=== PATIENT | male | born 1985 | race Caucasian/White ===

== ENCOUNTER → 2019-07-10 08:35 | Outpatient (BNVA) | payer OTHER, SELFPAY | PROVIDERS: PCP Orthopaedic Surgery; Visit Provider Orthopaedic Surgery | DX: S82.142A Displaced bicondylar fracture of left tibia, initial encounter for closed fracture (principal); X58.XXXA Exposure to other specified factors, initial encounter | CPT/HCPCS: 73560 ==

== ENCOUNTER 2024-10-16 14:05 | Emergency (ER) | payer SELFPAY ==
[2024-10-16] VITALS (13 sets, daily range): BP systolic 87–128; BP diastolic 51–87; PULSE 80–150; RESP 16–22; TEMP 36.9–39.4; O2SAT 91–96
--- NOTE | 2024-10-16 14:17 | ECG_ITS ---
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 Measurements Intervals [place] Rate: 149 P: 7 GA: 134 QRS: 124 QRSD: 99 T: 58 QT: 309 QTc: 487 Interpretive Statements SINUS TACHYCARDIA, POSSIBLE ATRIAL FLUTTER INDETERMINATE AXIS INCOMPLETE RIGHT BUNDLE BRANCH BLOCK [90+ ms QRS DURATION, TERMINAL R IN V1/V2, 40+ ms S IN I/aVL/V4/V5/V6] NONSPECIFIC ST & T-WAVE ABNORMALITY No previous ECG available for comparison Electronically Signed On 10-17-2024 21:33:08 CDT by Asa Lantigua M.D. [email or web address]
--- NOTE | 2024-10-16 14:23 | CT_ITS ---
WS: [id number] CT ABDOMEN AND PELVIS NONCONTRAST HISTORY: Abdominal pain TECHNIQUE: Imaging performed through the abdomen and pelvis. Coronal and sagittal reformats are submitted. All CT scans at [facility] use at least one of these dose optimization techniques: automated exposure control; mA and/or kV adjustment per patient size (includes targeted exams where dose is matched to clinical indication); or iterative reconstruction. DLP: 634.03 mGy.cm COMPARISON: None available. Lower thorax: Lung bases are clear. Visualized heart is normal. Small hiatal hernia. Liver: Enlarged heterogeneous liver. Cirrhotic appearance of the liver. There is intrahepatic duct dilatation. Markedly enlarged intrahepatic and common bile duct due to multiple stones along the common bile duct extending to the ampulla of Vater. Gallbladder: Abnormal gallbladder. There is gallbladder wall thickening and edema with pericholecystic fluid. Numerous stones within the gallbladder and extending throughout the common bile duct. Pancreas: Mild edema surrounding the pancreatic head. Pancreatic duct does not appear dilated. Spleen: Massive enlargement of the spleen measuring 19.3 cm in length. Numerous varicosities are noted in the LEFT abdomen at this clinic hilum and surrounding the spleen. Varicosities surround the distal esophagus. Adrenal glands: Normal RIGHT adrenal gland. LEFT adrenal gland is not well visualized due to the adjacent varicosities. Right kidney: Normal size kidney with no mass or hydronephrosis. Left kidney: Normal size kidney with no mass or hydronephrosis. Aorta: Mild atherosclerosis aorta. No aneurysm. Small central mesenteric lymph nodes are identified. Some of the nodules in the central mesentery are related to varicosities. GI tract: Stomach is normally distended. Mild inflammatory changes surrounding the loop of the duodenum. This is associated with choledocholithiasis. Mild sigmoid diverticular disease. Normal appendix. Abdominal wall: Small umbilical hernia. Recanalized umbilical vein. Pelvis: Urinary bladder is distended. No free fluid in the pelvis. Osseous structures: Multiple compression fractures in the thoracic and lumbar spine. Grade [address]/CT abdomen pelvis wo con [id number] IMPRESSION: 1. Choledocholithiasis. Numerous stones extend along the common bile duct into the ampulla of Vater. Some stones may actually be extruded into the duodenum. There is marked common bile duct and intrahepatic duct dilatation. Numerous sto juan remain within the gallbladder lumen. None of the stones appear to be professional programmer analyst al to the common bile duct. Patient is at risk for extrusion of the gallstones from the common bile duct and gallbladder. 2. Changes of acute cholecystitis. 3. Cirrhotic liver. 4. Inflammatory changes surround the pancreatic head from acute pancreatitis r elated to stone disease. 5. Massive enlargement of the spleen with splenic varicosities. Portal venous hypertension with cirrhotic liver. 6. Recanalized umbilical vein. 7. No ascites. 8. Small hernia with esophageal varices. Notified Osei Hagen DO at 10/16/2024 4:00 PM.
--- NOTE | 2024-10-16 14:25 | XRR_ITS ---
PROCEDURE INFORMATION: Exam: XR Chest Exam date and time: 10/16/2024 2:43 PM Age: 39 years old Clinical indication: Cough and dyspnea; Additional info: Dyspnea/cough TECHNIQUE: Imaging protocol: Radiologic exam of the chest. Views: 1 view. COMPARISON: No relevant prior studies available. FINDINGS: Lungs: There is no consolidation. There is minimal reticular opacity in the inferolateral portions of both lungs. Pleural spaces: There is no pleural effusion or pneumothorax. Heart/Mediastinum: Cardiomediastinal contours are unremarkable. Bones/joints: Bones are unremarkable. XR/XR chest 1V portable [id number] IMPRESSION: Minimal reticular opacity in the peripheral lower lungs bilaterally. Nonspecific. Possible mild scarring/atelectasis. Low-grade infection and interstitial lung disease can not be excluded.
[2024-10-16 14:36] LABS: Basophils % 0.3 %; Eosinophils % 0.2 %; Hematocrit 38.7 % (37-53); Lymphocytes # 0.3 10^3/uL (0.8-4.8); Lymphocytes % 2.7 %; Mean Corpuscular HGB Conc 32.8 g/dL (30-55); Mean Corpuscular Hemoglobin 30.5 pg (27-33); Mean Corpuscular Volume 92.8 fl (82-101); Mean Platelet Volume 11.7 fL (7.4-10.4); Monocytes # 0.9 10^3/uL (0.2-0.9); Monocytes % 9.1 %; Neutrophils # 8.61 10^3/uL (1.8-7.7); Neutrophils % 87.4 %; Nucleated Red Blood Cells % 0 %; Platelet Count 50 10^3/cmm (157-399); Red Blood Count 4.17 10^6/uL (3.85-5.65); Red Cell Distribution Width 17.2 % (12.1-15.1); White Blood Count 9.86 10^3/uL (3.29-11.43)
[2024-10-16 14:40] LABS: ABG PCO2 29.9 mmHg (35-45); ABG PH Result 7.49 (7.35-7.45); Arterial Blood Gas Hematocrit 40.5 % (42-52); Base Excess ABG 0.2 mmol/L (-2.0-2.0); Blood Gas Allen Test Pos; Blood Gas Sample Type Arterial; Carboxyhemoglobin 1.8 %THgb (0.4-20.1); HCO3 ABG 22.7 mmol/L (22-26); HGB O2 Sat 90.4 % (95-100); Ionized Calcium Level - ABG 1.1 mmol/L (1.1-1.4); Methemoglobin 1.2 % (0.4-1.5); Oxygen Saturation ABG 93.1; PO2 ABG 59.2 mmHg (80.0-100.0); Potassium Level - ABG 3.4 mmol/L (3.5-5.0); Total Hemoglobin 13.2 g/dL (14-18)
[2024-10-16 14:41] LABS: Blood Gas Operator Identificat MONRO; Blood Gas Sample Site Radial, right; Oxygen Device ROOM AIR; PO2 FiO2 Ratio Arterial Blood 281
[2024-10-16 14:54] LABS: Alanine Aminotransferase 74 U/L (0-41); Albumin Level 3.6 g/dL (3.5-5.2); Alkaline Phosphatase 550 U/L (40-130); Anion Gap 17.7 (5-19); Aspartate Amino Transferase 108 U/L (0-40); Blood Urea Nitrogen 12 mg/dL (6-20); Calcium 8.6 mg/dL (8.5-10.5); Carbon Dioxide 19 mmol/L (22-29); Chloride 102 mmol/L (98-107); Creatinine Clr Calc Pharmacy 287.6639; Globulin 3.2 g/dL (1.3-4.6); Glomerular Filtration Rate 238.3 mL/min (90-130); Glucose 117 mg/dL (65-115); Lactic Sepsis W/Reflex 1.4 mmol/L (0.5-2.2); Osmolality Calculated 281 mOsm/kg (285-295); Potassium 3.7 mmol/L (3.5-5.1); Sodium 135 mmol/L (136-145); Total Protein 6.8 g/dL (6.6-8.7)
[2024-10-16 14:55] LABS: Total Bilirubin 18.9 mg/dL (0.15-1.2)
[2024-10-16 14:56] LABS: Ammonia 59 umol/L (16-60)
--- NOTE | 2024-10-16 14:58 | US_ITS ---
WS: [id number] INDICATION: Abdominal distention TECHNIQUE: Four-quadrant ultrasound abdomen FINDINGS: No visualized ascites. Enlarged cirrhotic liver and spleen US/US abdomen lmt fluid [id number] IMPRESSION: No visualized ascites
[2024-10-16 15:02] LABS: Lipase 2735 U/L (13-60)
--- NOTE | 2024-10-16 15:05 | US_ITS ---
WS: [id number] RIGHT UPPER QUADRANT ULTRASOUND HISTORY: choledocholithiasis COMPARISON: CT the same day. Liver: 16.6 cm in length. Cirrhotic liver. Limited visualization of the liver. Intrahepatic ducts do not appear as significantly dilated as seen on CT. Limited evaluation of the liver. Portal Vein: Normal hepatopetal flow with monophasic waveform. Gallbladder: Gallbladder is poorly visualized. Stones within the gallbladder with diffuse gallbladder wall thickening. Patient has known pericholecystic fluid as seen on recent CT. CBD: 1.5 cm Pancreas: Not visualized. Right kidney: 12.9 cm in length. Normal size and echogenicity. No hydronephrosis or mass. Aorta and IVC: Limited. No ascites. US/US gall bladder [id number] IMPRESSION: 1. Very limited RIGHT upper quadrant ultrasound. 2. Patient has known cholelithiasis and acute cholecystitis as seen also by CT . 3. Common bile duct is dilated to 1.5 cm. Choledocholithiasis seen on CT is no t identified by ultrasound. 4. Cirrhotic liver.
--- NOTE | 2024-10-16 15:10 | ED_ITS ---
HPI - Abdominal Pain 2 General: Chief Complaint: Abdominal Pain Stated Complaint: yellow skin /SOB Time Seen by Provider: 10/16/24 14:22 History of Present Illness: 39-year-old male presents emergency room complaint of generally not feeling well last several days increased jaundice and fever patient has known cirrhosis presumably from history of alcohol use. Some mild epigastric discomfort but no sharp pain anywhere. No vomiting or diarrhea has been very nauseous on arrival here he is quite tachycardic. Denies chest pain or shortness of breath patient notices that with the generalized unwell feeling increased jaundiced he has been more nauseous but no vomiting. He is also noticed more abdominal distention. Denies any recent alcohol use. Associated Symptoms: Reports nausea; Denies chills, coffee ground emesis, dysuria, fever(s), hematochezia, hematemesis and melena Related Data Home Medications ?Medication ?Instructions ?Recorded ?Confirmed ibuprofen 200 mg capsule 200 mg PO Q6H PRN Pain 07/1010/16/24 pantoprazole 40 mg tablet,delayed 40 mg PO DAILY 10/1610/16/24 release Allergies Allergy/AdvReac Type Severity Reaction Status Date / Time No Known Allergies Allergy Verified 10/16/24 14:15 Review of Systems 2 Const: Denies: fever(s) or chills Card: Denies: chest pain Resp: Denies: dyspnea GI: Reports: nausea; Denies: abdominal pain, hematemesis, coffee ground emesis, hematochezia or melena : Denies: dysuria, urinary frequency or urinary urgency Musc: Denies: neck pain or back pain Skin/Breast: Denies: rash [facility] ED 2 PFSH: Social History Smoking and tobacco/nicotine status: current every day tobacco/nicotine user Alcohol intake: never Substance/Drug Use: never Physical Exam 2 Const: COMMON NORMALS: no acute distress GENERAL APPEARANCE: cooperative and comfortable ORIENTATION/CONSCIOUSNESS: Yes awake, Yes oriented to person, Yes oriented to place and Yes oriented to time HENMT: COMMON NORMALS: normocephalic, atraumatic and hearing grossly normal bilaterally HEAD & SCALP: normocephalic and atraumatic Resp: COMMON NORMALS: normal respiratory effort, No retractions, No use of accessory muscles and clear to auscultation bilaterally AUSCULTATION: clear to auscultation bilaterally Cardio: COMMON NORMALS: regular rhythm and No murmurs present (Cardio) R ATE: tachycardic RHYTHM: regular rhythm GI: INSPECTION: Yes abdominal distension AUSCULTATION: Yes normoactive bowel sounds PALPATION: Yes Tenderness to palpation present (GI) (Mild epigastric), No Guarding due to palpation present (GI) and Yes Hepatomegaly present Extremity: COMMON NORMALS: normal to inspection, capillary refill normal, no clubbing, cyanosis or edema, no calf tenderness and no pedal edema Neuro: SENSORIUM/ORIENTATION: Yes oriented to person, Yes oriented to place and Yes oriented to time Skin: OTHER: Significant scleral icterus and jaundice of the skin systemic Course 2 Vital Signs: Vital signs: Vital Signs Temperature 97.4 F L 10/17/24 03:55 Pulse Rate 109 H 10/17/24 14:31 Respiratory Rate 26 H 10/17/24 13:30 Blood Pressure 116/60 10/17/24 14:31 Pulse Oximetry 96 10/17/24 14:31 Oxygen Delivery Me thod Room Air 10/17/24 06:42 MDM - Abdominal Pain Medical Decision Making Patient has significant choledocholithiasis evident on the CT. Discussed with Dr. Andres she does not feel that MRCP would be necessary given obvious findings on the CT. Ultrasound there is no gas was difficult to distinguish the common bile duct. I discussed with GI at [facility] they have agreed to take the patient he has been given fluid boluses and initiated on antibiotics cultures have been done. Care signed out to Dr. Onofre at change of shift. See final notes for diagnosis and disposition. 10/17/2024 Care assumed at change of shift. I ordered scheduled antibiotics. We checked with [facility] there is still waiting on bed assignment. Later in the day contacted [facility] to see if they had opportunity discussed with GI they have accepted patient have a bed available will change to the receiving facility on transfer to [facility]. [facility] has been updated. Transferred via [facility] patient stable at time of transfer. Repeated labs in the morning these were reviewed. His lipase is increased other labs are improving. Medical Records I reviewed the patient's medical records. Lab Data I reviewed the patient's lab results. 10/17/24 06:11 10/17/24 06:11 Labs/Radiology: Radiology Impressions Abdomen/Pelvis CT 10/16/24 14:23 IMPRESSION: 1. Choledocholithiasis. Numerous stones extend along the common bile duct into the ampulla of Vater. Some stones may actually be extruded into the duodenum. There is marked common bile duct and intrahepatic duct dilatation. Numerous stones remain within the gallbladder lumen. None of the stones appear to be external to the common bile duct. Patient is at risk for extrusion of the gallstones from the common bile duct and gallbladder. 2. Changes of acute cholecystitis. 3. Cirrhotic liver. 4. Inflammatory changes surround the pancreatic head from acute pancreatitis related to stone disease. 5. Massive enlargement of the spleen with splenic varicosities. Portal venous hypertension with cirrhotic liver. 6. Recanalized umbilical vein. 7. No ascites. 8. Small hernia with esophageal varices. Notified Osei Hagen DO at 10/16/2024 4:00 PM. Chest X-Ray 10/16/24 14:25 IMPRESSION: Minimal reticular opacity in the peripheral lower lungs bilaterally. Nonspecific. Possible mild scarring/atelectasis. Low-grade infection and interstitial lung disease can not be excluded. Abdomen Ultrasound 10/16/24 14:58 IMPRESSION: No visualized ascites Gallbladder Ultrasound 10/16/24 15:05 IMPRESSION: 1. Very limited RIGHT upper quadrant ultrasound. 2. Patient has known cholelithiasis and acute cholecystitis as seen also by CT. 3. Common bile duct is dilated to 1.5 cm. Choledocholithiasis seen on CT is not identified by ultrasound. 4. Cirrhotic liver. Laboratory Results WBC 3.34 10^3/uL (3.29-11.43) 10/17/24 06:11 RBC 3.49 10^6/uL (3.85-5.65) L 10/17/24 06:11 Hgb 10.70 g/dL (11.27-16.99) L 10/17/24 06:11 Hct 33.3 % (37-53) L 10/17/24 06:11 MCV 95.4 fl (82-101) 10/17/24 06:11 MCH 30.7 pg (27-33) 10/17/24 06:11 MCHC 32.1 g/dL (30-55) 10/17/24 06:11 RDW 17.4 % (12.1-15.1) H 10/17/24 06:11 Plt Count 32 10^3/cmm (157-399) L D 10/17/24 06:11 MPV 10.4 fL (7.4-10.4) 10/17/24 06:11 Neut % (Auto) 73.3 % 10/17/24 06:11 Lymph % (Auto) 12.3 % 10/17/24 06:11 [place] % (Auto) 12.3 % 10/17/24 06:11 Eos % (Auto) 1.5 % 10/17/24 06:11 Baso % (Auto) 0.3 % 10/17/24 06:11 Neut # (Auto) 2.45 10^3/uL (1.8-7.7) 10/17/24 06:11 Lymph # (Auto) 0.4 10^3/uL (0.8-4.8) L 10/17/24 06:11 [place] # (Auto) 0.4 10^3/uL (0.2-0.9) 10/17/24 06:11 Eos # (Auto) 0.1 10^3/uL (0.0-0.8) 10/17/24 06:11 Baso # (Auto) 0.0 10^3/uL (0.0-0.1) 10/17/24 06:11 Nucleated RBC % (auto) 0 % 10/17/24 06:11 Nucleated RBCs # 0.0 /100WBC 10/17/24 06:11 PT 14.90 SECONDS (12.1-14.9) 10/16/24 14:25 INR 1.10 (0.8-1.2) 10/16/24 14:25 Specimen Type Arterial 10/16/24 14:27 Sample Site Radial, right 10/16/24 14:27 ABG pH 7.49 (7.35-7.45) H 10/16/24 14:27 ABG pCO2 29.9 mmHg (35-45) L 10/16/24 14:27 ABG pO2 59.2 mmHg (80.0-100.0) L 10/16/24 14:27 ABG PO2/FiO2 Ratio 281 10/16/24 14:27 ABG HCO3 22.7 mmol/L (22-26) 10/16/24 14:27 ABG O2 Saturation 93.1 10/16/24 14:27 ABG Base Excess 0.2 mmol/L (-2.0-2.0) 10/16/24 14:27 Rivera Test Pos 10/16/24 14:27 A-a O2 Gradient 7.0 mmHg (5-10) 10/16/24 14:27 Hematocrit 40.5 % (42-52) L 10/16/24 14:27 Hgb O2 Saturation 90.4 % (95-100) L 10/16/24 14:27 Carboxyhemoglobin 1.8 %THgb (0.4-20.1) 10/16/24 14: Methemoglobin 1.2 % (0.4-1.5) 10/16/24 14: Total Hemoglobin 13.2 g/dL (14-18) L 10/16/24 14:27 Sodium 136.0 mmol/L (131-143) 10/16/24 14:27 Potassium 3.4 mmol/L (3.5-5.0) L 10/16/24 14:27 Glucose 112.0 mg/dL (70-115) 10/16/24 14:27 Ionized Calcium 1.1 mmol/L (1.1-1.4) 10/16/24 14:27 O2 Delivery Device Room air 10/16/24 14:27 FiO2 21.0 % 10/16/24 14:27 Salt Grinder ID Sena 10/16/24 14:27 Sodium 141 mmol/L (136-145) 10/17/24 06:11 Potassium 3.8 mmol/L (3.5-5.1) 10/17/24 06:11 Chloride 109 mmol/L (98-107) H 10/17/24 06:11 Carbon Dioxide 21 mmol/L (22-29) L 10/17/24 06:11 Anion Gap 14.8 (5-19) 10/17/24 06:11 BUN 12 mg/dL (6-20) 10/17/24 06:11 Creatinine 0.4 mg/dL (0.7-1.2) L 10/17/24 06:11 GFR Calculation 238.3 mL/min (90-130) H 10/17/24 06:11 Glucose 89 mg/dL (65-115) 10/17/24 06:11 Calculated Osmolality 291 mOsm/kg (285-295) 10/17/24 06:11 Lactic Acid 1.1 mmol/L (0.5-2.2) 10/16/24 19:05 Calcium 7.9 mg/dL (8.5-10.5) L 10/17/24 06:11 Total Bilirubin 17.0 mg/dL (0.15-1.2) H* 10/17/24 06:11 AST 74 U/L (0-40) H 10/17/24 06:11 ALT 52 U/L (0-41) H 10/17/24 06:11 Alkaline Phosphatase 409 U/L (40-130) H 10/17/24 06:11 Ammonia 59 umol/L (16-60) 10/16/24 14:25 Total Protein 5.6 g/dL (6.6-8.7) L 10/17/24 06:11 Albumin 2.9 g/dL (3.5-5.2) L 10/17/24 06:11 Globulin 2.7 g/dL (1.3-4.6) 10/17/24 06:11 Lipase 2913 U/L (13-60) H 10/17/24 06:11 All radiology interpretation(s) finalized by discharge Discharge Plan Discharge Patient Disposition: Xfer Short-Term Hosp Condition: Stable Print Language: Serbian Coding Level of Care Code ED [employer] for [employer]anna [employer]
[2024-10-16] MEDS: piperacillin-tazobactam 3.375 GM in sodium chloride 0.9% (plus) 50 ML IV (15:34)
[2024-10-16] MEDS: sodium chloride 0.9% 2,721.54 ML 2721.54 ML IV (15:34)
[2024-10-16] MEDS: sodium chloride 0.9% 1,000 ML 999 ML IV (19:26)
[2024-10-16 19:40] LABS: Lactic Sepsis W/Reflex 1.1 mmol/L (0.5-2.2)
[2024-10-16] MEDS: ketorolac 30 mg/mL INJ 15 MG IVP (19:46)
[2024-10-17] VITALS (50 sets, daily range): BP systolic 93–124; BP diastolic 50–74; PULSE 89–115; RESP 13–31; TEMP 36.3; O2SAT 90–96
[2024-10-17] MEDS: piperacillin-tazobactam 3.375 GM in sodium chloride 0.9% (plus) 50 ML IV ×2 (03:55→12:40)
[2024-10-17 05:34] LABS: Acinetobacter baumannii Not Detected (NOT DETECT); Bacteroides fragilis Not Detected (NOT DETECT); CTX-M Not Detected (NOT DETECT); Citrobacter Not Detected (NOT DETECT); Cronobacter sakazakii Not Detected (NOT DETECT); Enterobacter cloacae complex Not Detected (NOT DETECT); Enterobacter non cloacae Not Detected (NOT DETECT); Fusobacterium necrophorum Not Detected (NOT DETECT); Fusobacterium nucleatum Not Detected (NOT DETECT); Haemophilus influenzae Not Detected (NOT DETECT); IMP Resistance Gene Not Detected (NOT DETECT); KPC Resistance Gene Not Detected (NOT DETECT); Klebsiella pneumoniae group Not Detected (NOT DETECT); Morganella morganii Not Detected (NOT DETECT); NDM Resistance Gene Not Detected (NOT DETECT); Neisseria meningitidis Not Detected (NOT DETECT); OXA Resistance Gene Not Detected (NOT DETECT); Pan Candida Not Detected (NOT DETECT); Pan Gram-Positive Not Detected (NOT DETECT); Proteus mirabilis Not Detected (NOT DETECT); Pseudomonas aeruginosa Not Detected (NOT DETECT); Salmonella Not Detected (NOT DETECT); Serratia Not Detected (NOT DETECT); Serratia marcescens Not Detected (NOT DETECT); Stenotrophomonas maltophilia Not Detected (NOT DETECT); VIM Resistance Gene Not Detected (NOT DETECT)
[2024-10-17 06:23] LABS: Basophils % 0.3 %; Eosinophils # 0.1 10^3/uL (0.0-0.8); Eosinophils % 1.5 %; Hematocrit 33.3 % (37-53); Lymphocytes # 0.4 10^3/uL (0.8-4.8); Lymphocytes % 12.3 %; Mean Corpuscular HGB Conc 32.1 g/dL (30-55); Mean Corpuscular Hemoglobin 30.7 pg (27-33); Mean Corpuscular Volume 95.4 fl (82-101); Mean Platelet Volume 10.4 fL (7.4-10.4); Monocytes # 0.4 10^3/uL (0.2-0.9); Monocytes % 12.3 %; Neutrophils # 2.45 10^3/uL (1.8-7.7); Neutrophils % 73.3 %; Nucleated Red Blood Cells % 0 %; Platelet Count 32 10^3/cmm (157-399); Red Blood Count 3.49 10^6/uL (3.85-5.65); Red Cell Distribution Width 17.4 % (12.1-15.1); White Blood Count 3.34 10^3/uL (3.29-11.43)
[2024-10-17 06:38] LABS: Alanine Aminotransferase 52 U/L (0-41); Albumin Level 2.9 g/dL (3.5-5.2); Alkaline Phosphatase 409 U/L (40-130); Anion Gap 14.8 (5-19); Aspartate Amino Transferase 74 U/L (0-40); Blood Urea Nitrogen 12 mg/dL (6-20); Calcium 7.9 mg/dL (8.5-10.5); Carbon Dioxide 21 mmol/L (22-29); Chloride 109 mmol/L (98-107); Creatinine Clr Calc Pharmacy 287.6639; Globulin 2.7 g/dL (1.3-4.6); Glomerular Filtration Rate 238.3 mL/min (90-130); Glucose 89 mg/dL (65-115); Osmolality Calculated 291 mOsm/kg (285-295); Potassium 3.8 mmol/L (3.5-5.1); Sodium 141 mmol/L (136-145); Total Protein 5.6 g/dL (6.6-8.7)
[2024-10-17] MEDS: dextrose 5%-ns + KCl 20 20 MEQ/1,000 ML BAG 150 MEQ IV (12:10)
[2024-10-17 13:30] LABS: Lipase 2913 U/L (13-60)
== END 2024-10-17 14:33 | disposition short-term general hospital (02) ==
PROVIDERS: Emergency Medicine; Student in an Organized Health Care Education/Training Program; Emergency Provider Family Medicine
DX: R10.13 Epigastric pain (principal); R17 Unspecified jaundice; R50.9 Fever, unspecified; R11.0 Nausea; Z72.0 Tobacco use; K80.50 Calculus of bile duct without cholangitis or cholecystitis without obstruction
CPT/HCPCS: 36415; 36600; 71045; 74176; 76705; 80051; 80053; 82140; 82330; 82805; 83605; 83690; 85025; 85610; 87040; 87077; 87150; 87186; 87205; 93005; 96365; 96366; 96375; 99285; J1885; J2543; J7030; J9999